=== PATIENT | female | born 1980 | race American Indian/Alaskan Native ===

== ENCOUNTER 2018-10-23 23:13 | Emergency (ER) | payer OTHER ==
[2018-10-24] MEDS ORDERED: PROVENTIL IH ONE (00:18)
[2018-10-24] MEDS ORDERED: TYLENOL PO ONE (00:18)
--- NOTE | 2018-10-24 00:19 | Emergency Department Report ---
ED General Adult HPI - General Chief complaint: Chest Pain Stated complaint: CHEST PAIN DRY COUGH Time Seen by Provider: 10/23/18 23:57 Source: patient, RN notes reviewed Mode of arrival: Ambulatory Limitations: No Limitations - History of Present Illness Initial comments: This is a 38-year-old female. The patient is not known to this provider previously. She does not have a local primary care doctor. The patient is not , denies or within the past 6 weeks, and she denies oral contraceptive use, and denies recent aspirin use. Patient recently traveled to [place]. This was a 4 hour plane trip. Since coming back, she reports resolved flulike symptoms, postnasal drip, cough, and chest wall pain. There is no leg pain, there is no leg swelling, there is no hematemesis, there is no bright red blood per rectum. Her chest pain has been present for 3 days, it is constant, it does not radiates to the back, arms and neck, there is no vomiting, there is no diaphoresis, there is no exertional shortness of breath, there is no recent aspirin use, there is no recent cocaine use, the patient denies a family history of coronary artery disease, DVT or pulmonary embolus. -: Gradual, days(s) Location: chest Severity scale (0 -10): 5 Consistency: constant Improves with: none Worsens with: none Associated Symptoms: chest pain, cough - Related Data Previous Rx's Medication Instructions Recorded Last Taken Type Acetaminophen [Tylenol Arthritis] 650 mg PO Q6HR PRN #30 tablet.er 10/24/18 Unknown Rx Albuterol Sulfate [Proair 90 mcg IH Q4HR PRN #2 aer.pow.ba 10/24/18 Unknown Rx Respiclick] Benzonatate [Tessalon Perles] 100 mg PO Q8HR PRN #30 capsule 10/24/18 Unknown Rx Fexofenadine/Pseudoephedrine 1 each PO BID PRN #20 tab.er.12h 10/24/18 Unknown Rx [Zulema-D 12 Hour Tablet] Fluticasone [Flonase] 1 spray NS QDAY #1 bottle 10/24/18 Unknown Rx Ibuprofen [Motrin] 600 mg PO Q8H PRN #30 tablet 10/24/18 Unknown Rx Allergies Allergy/AdvReac Type Severity Reaction Status Date / Time hydrocodone AdvReac Itching Verified 10/23/18 23:31 ED Review of Systems ROS: Stated complaint: CHEST PAIN DRY COUGH Other details as noted in HPI Constitutional: denies: fever, malaise Eyes: denies: vision change ENT: congestion Respiratory: cough Cardiovascular: chest pain Gastrointestinal: denies: abdominal pain, nausea, vomiting Genitourinary: denies: urgency, dysuria Musculoskeletal: denies: back pain Skin: denies: lesions Psychiatric: denies: as per HPI, anxiety ED Past Medical Hx - Past Medical History Previous Medical History?: No - Surgical History Past Surgical History?: No - Social History Smoking Status: Never Smoker Substance Use Type: None - Medications Home Medications: Home Medications Medication Instructions Recorded Confirmed Last Taken Type Acetaminophen [Tylenol Arthritis] 650 mg PO Q6HR PRN #30 tablet.er 10/24/18 Unknown Rx Albuterol Sulfate [Proair 90 mcg IH Q4HR PRN #2 aer.pow.ba 10/24/18 Unknown Rx Respiclick] Benzonatate [Tessalon Perles] 100 mg PO Q8HR PRN #30 capsule 10/24/18 Unknown Rx Fexofenadine/Pseudoephedrine 1 each PO BID PRN #20 tab.er.12h 10/24/18 Unknown Rx [Zulema-D 12 Hour Tablet] Fluticasone [Flonase] 1 spray NS QDAY #1 bottle 10/24/18 Unknown Rx Ibuprofen [Motrin] 600 mg PO Q8H PRN #30 tablet 10/24/18 Unknown Rx ED Physical Exam - General Limitations: No Limitations General appearance: alert, in no apparent distress - Head Head exam: Present: atraumatic, normocephalic - Eye Eye exam: Present: normal appearance, EOMI - ENT ENT exam: Present: normal exam, normal orophraynx, mucous membranes moist, normal external ear exam - Neck Neck exam: Present: normal inspection, full ROM. Absent: tenderness, men ingismus - Respiratory Respiratory exam: Present: normal lung sounds bilaterally, chest wall tenderness. Absent: respiratory distress - Cardiovascular Cardiovascular Exam: Present: regular rate, normal rhythm, normal heart sounds. Absent: bradycardia, tachycardia, irregular rhythm, systolic murmur, diastolic murmur, rubs, gallop - GI/Abdominal GI/Abdominal exam: Present: soft. Absent: distended, tenderness, guarding, rebound, rigid, pulsatile mass - Extremities Exam Extremities exam: Present: normal inspection, full ROM, other (there is no palpable cord. There is negative Homans sign.). Absent: tenderness, pedal edema, joint swelling, calf tenderness - Back Exam Back exam: Present: normal inspection, full ROM. Absent: tenderness, CVA tenderness (R), paraspinal tenderness, vertebral tenderness - Neurological Exam Neurological exam: Present: alert, oriented X3, CN II-XII intact, normal gait, other (Extraocular movements intact. Tongue midline. No facial droop. Facial sensation intact to light touch in the V1, V2, V3 distribution bilaterally. 5 and 5 strength in 4 extremities.. Sensation is intact to light touch in 4 extremities.). Absent: motor sensory deficit - Psychiatric Psychiatric exam: Present: normal affect, normal mood - Skin Skin exam: Present: warm, dry, intact, normal color. Absent: rash ED Course Vital Signs 10/23/18 10/24/18 10/24/18 23:21 01:10 02:00 Temperature 97.8 F Pulse Rate 78 74 84 Respiratory 18 16 16 Rate Blood Pressure 105/64 120/77 108/72 [Right] O2 Sat by Pulse 99 100 100 Oximetry - Reevaluation(s) Reevaluation #1: 10/24/18 01:08 Differential diagnosis, including not limited to: Bronchitis, costochondritis, pneumonia, GERD, hiatal hernia, pulmonary embolus, acute coronary syndrome, fungal infection Assessment and plan: 38-year-old female, low risk by well's criteria, recent airplane trip his only risk factor for pulmonary embolus, however not tachycardic, not hypoxic, perc negative, low risk by DILAN score, low risk by well's criteria, with cough and chest pain, likely bronchitis. They also be allergies and/or postnasal drip. The patient is afebrile, with reassuring vital signs. We will treat her symptoms with acetaminophen, albuterol, and screening laboratory studies have been requested at this time. She reports that she is not , we will obtain serum test, and a d-dimer. Very unlikely to be acute coronary syndrome, symptoms present for the past 3 days, therefore, as per the [employer] clinical policy, acute myocardial infarction may be excluded with 1 set of troponins, cardiac enzymes, as symptoms have been present for greater than 8 hours. We will reassess once her initial diagnostics have resulted. Reevaluation #2: 10/24/18 02:21 Patient feels improved. Troponin negative. D-dimer negative. X-ray the chest negative. Laboratory testing unremarkable. Skull exam unremarkable. Patient at low risk for major adverse cardiac event. We will discharge the patient with cough medication, pain medication, instructions to follow up with outpatient primary care, cardiology, pulmonology. Dr. Guthrie's are reviewed. ED Medical Decision Making - Lab Data Result diagrams: 10/24/18 00:29 10/24/18 00:29 Vital Signs 10/23/18 23:21 Temperature 97.8 F Pulse Rate 78 Respiratory 18 Rate Blood Pressure 105/64 [Right] O2 Sat by Pulse 99 Oximetry - EKG Data -: EKG Interpreted by [facility] EKG shows normal: sinus rhythm, axis, intervals, QRS complexes, ST-T waves - EKG Data When compared to previous EKG there are: previous EKG unavailable 10/24/18 01:10 EKG #1 shows sinus, 75 bpm, normal axis, normal intervals, incomplete right bundle branch block, not consistent with ST elevation myocardial infarction. EKG #2 appears to be unchanged from first EKG. - Radiology Data Radiology results: pending, report reviewed, image reviewed X-ray of the chest is negative for acute disease Critical care attestation.: If time is entered above; I have spent that time in minutes in the direct care of this critically ill patient, excluding procedure time. ED Disposition Clinical Impression: Acute bronchitis Qualifiers: Bronchitis organism: unspecified organism Qualified Code(s): J20.9 - Acute bronchitis, unspecified Chest pain Qualifiers: Chest pain type: unspecified Qualified Code(s): R07.9 - Chest pain, unspecified Disposition: -01 TO HOME OR SELFCARE Is pt being admited?: No Does the pt Need Aspirin: No Condition: Stable Instructions: Chest Pain (ED), Acute Bronchitis (ED) Additional Instructions: Take medications as needed/directed. Follow-up with the primary care doctor or plastic cablemaking machine operator within the next 3-5 days for chest pain. Follow-up with a primary care doctor or a podiatric foot and ankle specialist within the next 3-4 weeks for cough. Patient most likely has bronchitis, likely secondary to either postnasal drip, and/or seasonal allergies. Exotic fungal infection less likely. Bronchitis symptoms typically last anywhere from 3-6 weeks. They're not typically dangerous or life-threatening, however there is no cure for bronchitis, and it typically is a condition that does not require antibiotics. Please return to the emergency room right away with new, worsening or different symptoms, projectile vomiting, change in mental status, confusion, inability to speak, inability to breathe. Prescriptions: Fexofenadine/Pseudoephedrine [Zulema-D 12 Hour Tablet] 1 each PO BID PRN #20 tab.er.12h PRN Reason: Cough Fluticasone [Flonase] 1 spray NS QDAY #1 bottle Ibuprofen [Motrin] 600 mg PO Q8H PRN #30 tablet PRN Reason: Pain Albuterol Sulfate [Proair Respiclick] 90 mcg IH Q4HR PRN #2 aer.pow.ba PRN Reason: Wheezing Benzonatate [Tessalon Perles] 100 mg PO Q8HR PRN #30 capsule PRN Reason: Cough Acetaminophen [Tylenol Arthritis] 650 mg PO Q6HR PRN #30 tablet.er PRN Reason: Pain Referrals: [facility] [Provider Group] - 3-5 Days [facility] [Provider Group] - 3-5 Days SHAY STOKES MD [Staff Physician] - 3-5 Days Forms: Work/School Release Form(ED)
[2018-10-24 01:05] LABS: Hematocrit 32.9 % (30.3-42.9); Hemoglobin 10.5 gm/dl (10.1-14.3); Mean Corpuscular HGB Conc 32 % (30-34); Mean Corpuscular Volume 76 fl (79-97); Platelet Count 271 K/mm3 (140-440); Red Blood Count 4.35 M/mm3 (3.65-5.03); Red Cell Distribution Width 14.5 % (13.2-15.2)
[2018-10-24 01:31] LABS: Alanine Aminotransferase 8 units/L (7-56); BUN/Creatinine Ratio 11; Blood Urea Nitrogen 10 mg/dL (7-17); Calcium 8.8 mg/dL (8.4-10.2); Hemolysis Index 6
[2018-10-24] MEDS ORDERED: TORADOL IM ONE (01:41)
--- NOTE | 2018-10-24 02:10 | XRay Report ---
PROCEDURE: XR CHEST ROUTINE 2V TECHNIQUE: PA and lateral chest radiographs were obtained. HISTORY: cp cough COMPARISONS: None. FINDINGS: Heart: Normal. Mediastinum/Vessels: Normal. Lungs/Pleural space: Normal. Bony thorax: No acute osseous abnormality. IMPRESSION: Normal examination. This document is electronically signed by Yannick Montalvo MD., October 24 2018 02:07:42 AM ET
[2018-10-24 04:01] VITALS: BP 108/72
== END 2018-10-24 02:00 | disposition home or self-care (01) ==
LOC: ED 23:13
DX: J20.9 Acute bronchitis, unspecified (principal)
CPT/HCPCS: 36415; 71046; 80053; 82550; 84484; 84702; 85027; 85379; 93005; 93010; 96372; 99284; J1885